=== PATIENT | female | born 1970 | race African-American/Black ===

== ENCOUNTER 2024-07-12 15:29 | Emergency (ER) | payer OTHER, SELFPAY ==
[2024-07-12 15:29] VITALS: BMI 21.1
[2024-07-12 15:31] VITALS: BP 100/66
[2024-07-12 16:00] VITALS: BP 104/58
[2024-07-12 16:11] LABS: % Basophils 0.2 % (0-2); % Immature Granulocytes 0.9 % (0-0.5); % Lymphocytes 9.4 % (20.5-51.1); % Monocytes 4.3 % (1.7-9.3); % Neutrophils 85.2 % (42.2-75.2); Absolute Immature Granulocytes 0.1 10^3/uL (0-0.05); Absolute Lymphocytes 1.3 10^3/uL (1.2-3.4); Absolute Monocytes 0.6 10^3/uL (0.1-0.6); Hematocrit 34.3 % (37.0-47.0); Hemoglobin 11.1 g/dL (12.0-16.0); Mean Corp Hgb Conc. 32.4 g/dL (33.0-37.0); Mean Corpuscular Hgb 30.4 pg (27.0-31.0); Mean Platelet Volume 9.7 fL (7.4-10.4); Nucleated Red Blood Cells % 0 %; Platelet Count 192 10^3/uL (130-400); Red Blood Cell Count 3.65 10^6/uL (4.20-5.40); Red Cell Dist. Width 13.3 % (11.5-14.5); White Blood Cell Count 14.1 10^3/uL (4.8-10.8)
[2024-07-12 16:18] LABS: COVID-19 Antigen Negative (Negative)
[2024-07-12 16:28] LABS: ALT (SGPT) 75 U/L (0-35); AST (SGOT) 52 U/L (14-36); Albumin 2.4 g/dl (3.5-5.0); Alkaline Phosphatase 115 U/L (38-126); Blood Urea Nitrogen 9 mg/dl (7-17); Carbon Dioxide 29 mmol/L (22-30); Chloride 102 mmol/L (98-107); Glucose 85 mg/dl (70-99); Potassium 3.4 mmol/L (3.5-5.1); Sodium 135 mmol/L (135-145); Total Bilirubin 1.3 mg/dl (0.2-1.3); Total Protein 5.1 g/dl (6.3-8.2); eGFR > 60.00
--- NOTE | 2024-07-12 17:06 | ED.GENMED ---
History of Present Illness
General
Chief Complaint: Cold/Flu/URI Symptoms
Source: patient
Exam Limitations: none
Time Seen by Provider: 07/12/24 16:42
Nursing documentation reviewed up to this point in time: agreed with
History of Present Illness
History of Present Illness:
54 y/o F with h/o HTN, former smoker, gastric bypass, gerd
here with uri sxs cough, fatigue, headache, fever, bodyaches x 4 days
pt was meseret to go to PCP but was too weak to get there so she called 911 to come to the ER
she has some soreness in her chest with coughing and is couging frequently
she ays she didnt sleep much at all
last fever 101 last night
last dose tylenol9 am today but no fever
no abdominal pain, sob, vomiting, diarrhea, sore throat
Past History
Past History
ED Past Medical History: HTN
ED Past Surgical History: Gynecological and Other (gastric bypass)
Social History
Tobacco: Non-smoker
Personal: Single
Living: with family
Employment: Employed
Family History
Family History: Other
Review of Systems
Review of Systems
Allergies reviewed?: Yes
All Other Systems: Not applicable
Phy Exam
Physical Exam
Physical Exam:
GENERAL: Alert , in no apparent distress, nontoxic, generally weak
thin
EYE: pupils equal and reactive
NECK: Supple
ENT: b/l TM s clear, pharynx erythematous but no tonsillar hypertrophy or exudates
CARDIAC: Regular rate and rhythm, no edema
LUNGS: frequent cough, rhonchi R upper lobe, crackles R upper lobe; no tachypnea
ABDOMEN: Soft, without focal tenderness, no r/g, no cvat, normal bowel sounds
NEUROLOGICAL: Alert and oriented, no focal neuro deficits
SKIN: Warm and dry, skin intact.
MUSCULOSKELETAL: No edema, well perfused.
PSYCH: Normal and appropriate interaction.
Course
Orders/Labs/Results
Orders:
Orders
07/12/24 15:52
COVID-19 Antigen Urgent
Source: Nasal Swab
Complete Blood Count/With Diff Urgent
Comprehensive Metabolic Panel Urgent
Influenza A+B Rapid Molecular Urgent
JENNI Source: Nasal Swab
Specimen Description:
07/12/24 17:05
0.9% Sodium Chloride 1000 ml [Nss] 1,000 ml IV BOLUS
Acetaminophen [Tylenol] 650 mg PO NOW STA
Ketorolac [Toradol] 15 mg IV NOW STA
CR Chest - 2 Views Urgent
Comment:
Reason For Exam: couh, flu
07/12/24 17:06
Electrocardiogram (*1) Urgent
Reason for Study: Chest Pain
EKG- Treatment ONCE
07/12/24 17:19
Lactic Acid Urgent
07/12/24 19:54
Azithromycin [Zithromax] 500 mg PO NOW STA
Doxycycline [Vibramycin] 100 mg PO NOW STA
Oseltamivir Phosphate [Tamiflu] 75 mg PO NOW STA
Abnormal Lab Results
07/12/24
15:52
WBC 14.1 H 10^3/uL
(4.8-10.8)
RBC 3.65 L 10^6/uL
(4.20-5.40)
Hgb 11.1 L g/dL
(12.0-16.0)
Hct 34.3 L %
(37.0-47.0)
MCHC 32.4 L g/dL
(33.0-37.0)
Abs Immat Gran (auto) 0.1 H 10^3/uL
(0-0.05)
Absolute Neuts (auto) 12.0 H 10^3/uL
(1.4-6.5)
Immature Gran % 0.9 H %
(0-0.5)
Neutrophils % 85.2 H %
(42.2-75.2)
Lymphocytes % 9.4 L %
(20.5-51.1)
Potassium 3.4 L mmol/L
(3.5-5.1)
Calcium 8.0 L mg/dl
(8.4-10.2)
AST 52 H U/L
(14-36)
ALT 75 H U/L
(0-35)
Total Protein 5.1 L g/dl
(6.3-8.2)
Albumin 2.4 L g/dl
(3.5-5.0)
07/12/24 15:52
07/12/24 15:52
Vital Signs
Temp: 38.2 C
Initial and Last Documented VS:
Initial Vital Signs
Temp Pulse Resp BP Pulse Ox
37.8 C 99 16 100/66 100
07/12/24 15:31 07/12/24 15:31 07/12/24 15:31 07/12/24 15:31 07/12/24 15:31
Last Documented Vital Signs
Temp Pulse Resp BP Pulse Ox
37.0 C 84 16 102/77 99
07/12/24 18:25 07/12/24 18:25 07/12/24 20:00 07/12/24 19:00 07/12/24 20:00
MDM/Problems Addressed
Differential Diagnosis Includes:
flu, pna, covid, dehydration
MDM/Problems Addressed:
54 y/o F fairly healthy
here with 4 days cough, fatigu, headache, fever, bodyaches
takin tylenol
coughed a lot last night
lightheaded
normal BP is usuall low 100s
was febrile for me
not tachy
nontoxic but slightly punky appearing
coughing occ
with rales R base
otherwise unremarkable exam
awake/not lethargic
given fluids and tylenol and feels much better
wbc 13
left shift
lacteate normal
cxr shows R > L opacities probable pna
d/w ed attending
given option to admit vs dc
will cover with abx given clinical picture with [place] in [place] on [place] with mild pna there
also start tamiflu, aware of > 48 horus but with pna it is indicated
return preatuion given
doxy and azithr
ambulted and didn't desat
feels well enough to go home
*Critical Care Note
Total Time (30-74mins, 75-104mins- exclusive of procedures): Not Applicable
ED Attending Note
-
Portions of this chart may have been created with voice recognition software.� Occasional wrong word or��sound alike� substitutions may have occurred due to the inherent limitations of voice recognition software.
Discharge Plan
Departure
Patient Disposition: Home (Routine Discharge)
Date of Disposition: 07/12/24
Time of Disposition: 19:50
Patient with high blood pressure during this ER visit?: No
Condition: Fair
Covid-19: Not Applicable
Discharge Problem:
Flu, Pneumonia
Instructions: Pneumonia in adults - Discharge instructions, Flu in adults - ED discharge instructions
Prescriptions:
New
doxycycline hyclate 100 mg tablet
100 mg PO BID Qty: 13 0RF
azithromycin [Zithromax] 250 mg tablet
250 mg PO DAILY Qty: 4 0RF
oseltamivir [Tamiflu] 75 mg capsule
75 mg PO BID 5 Days Qty: 9 0RF
No Action
ferrous sulfate [Feosol] 325 MG tablet
325 mg PO DAILY Qty: 30 0RF
multivitamin [One Daily Essential] 1 EACH tablet
1 ea PO DAILY Qty: 30 0RF
Referrals:
Aftab Anaya MD [Family Provider] - Follow up in 2-3 days
Activity Restrictions/Additional Instructions:
YOU TESTED POSITIVE FOR THE FLU
BUT YOU ALSO HAD SOME SIGNS OF PNEUMONIA ON YOUR CHEST XRAY
WE ARE MESERET TO TRY YOU GOING HOME WITH ANTIBIOTICS AND ANTIVIRALS
IT IS IMPORTANT TO RETURN IF YOU FEEL WORSE: SHORT OF BREATH, LETHARGY, WEAKNESS, HGIH FEVER NOT REPSONDING TO MEDICATIONS [place] CONCERNS.
TAKE TAMIFLU TWICE A DAY FOR 5 DAYS (IF THIS IS NOT TOERLATED WELL, STOP IT)
TAKE ZITHROMAX ONCE A DAY FOR 4 DAYS STARTING TOMORROW
TAKE DOXYCYCLINE 100 MG TWICE A DAY FOR 7 DAYS STARTING TOMORROW
FOLLOW UP WITH YOUR FAMILY DOCTOR
YOU CAN USE OTHER THE COUNTER COUGH MEDICATION
TAKE TYLELNOL EVERY 6 HOURS FOR YOUR FEVERS
RETURN FOR ANY CONCERNS.
Interventions
Interventions:
*Risk Screen - Suicide Last Done: 07/12/24 15:31
*General Assessment Last Done: 07/12/24 16:51
*Neglect/Abuse Screening Last Done: 07/12/24 15:31
ED- Fall Risk Assessment Last Done: 07/12/24 16:51
*Nursing Disposition Last Done: 07/12/24 20:01
ED- Pulmonary Assessment Last Done: 07/12/24 16:51
Discharge Date and Time
Discharge Date/Time: 07/12/24 20:01
Print Language: UPPER SORBIAN
[2024-07-12] MEDS: NSS 1000 IV (17:17)
[2024-07-12] MEDS: TYLENOL 650 MG PO (17:17)
[2024-07-12] MEDS: TORADOL 15 MG IV (17:17)
[2024-07-12 18:25] VITALS: BP 108/67
[2024-07-12 18:44] VITALS: BP 114/71
[2024-07-12 19:00] VITALS: BP 102/77
[2024-07-12] MEDS: TAMIFLU 75 MG PO (20:05)
[2024-07-12] MEDS: ZITHROMAX 500 MG PO (20:05)
[2024-07-12] MEDS: VIBRAMYCIN 100 MG PO (20:05)
== END 2024-07-12 20:01 | disposition home or self-care (01) ==
LOC: EMR 15:29
PROVIDERS: Emergency Medicine; Physician Assistant; EMERGENCY PHYSICIAN Emergency Medicine; FAMILY PHYSICIAN Internal Medicine
DX: J10.00 Influenza due to other identified influenza virus with unspecified type of pneumonia (principal); I10 Essential (primary) hypertension; K21.9 Gastro-esophageal reflux disease without esophagitis; Z87.891 Personal history of nicotine dependence; Z98.84 Bariatric surgery status
CPT/HCPCS: 96374; 96361; 99285; 71046; 80053; 83605; 85025; 87502; 87811; 93005